=== PATIENT | female | born 2000 | race American Indian/Alaskan Native ===

== ENCOUNTER 2018-10-29 16:22 | Inpatient (IN) | payer MEDICAID ==
[2018-10-29] MEDS ORDERED: LACTATED RINGERS 1,000 ML IV ONE (17:38)
--- NOTE | 2018-10-29 19:57 | Ultrasound Report ---
FINAL REPORT PROCEDURE: US OB LIMITED TECHNIQUE: Real-time limited sonographic examination was performed for evaluation of fluid volume f or each fetus with image documentation (1 or more fetuses). CPT 74301 HISTORY: well being COMPARISON: No prior studies are available for comparison. FINDINGS: FETUS IUP: Single living intrauterine . Position: Cephalic. Amniotic fluid volume: Amniotic fluid index measures 9.6 centimeters Heart rate and rhythm: 152 BPM, Regular . IMPRESSION: Amniotic fluid index measures 9.6 centimeters
--- NOTE | 2018-10-29 19:58 | Ultrasound Report ---
FINAL REPORT PROCEDURE: US OB BPP WO NON-STRESS TECHNIQUE: Sonographic evaluation for breathing, movement, tone, and amniotic flui d volume was performed. CPT 78344 HISTORY: well being COMPARISON: No prior studies are available for comparison. FINDINGS: Amniotic fluid volume: Normal-score 2. At least one vertical pocket > 2 cm or more in vertical axi s. breathing: Normal-score 2. movement: Normal-score 2. tone: Normal-score 2. Score: 8 of 8. IMPRESSION: Normal biophysical profile score.
[2018-10-29] MEDS ORDERED: MINERAL OIL PO PRN (20:15)
[2018-10-29] MEDS ORDERED: CERVIDIL VG ONE (20:15)
[2018-10-29] MEDS ORDERED: BRETHINE SUB-Q PRN (20:15)
[2018-10-29] MEDS ORDERED: XYLOCAINE 2% INFILTRATI ONE (20:15)
[2018-10-29] MEDS ORDERED: ZOFRAN IV PRN (20:15)
--- NOTE | 2018-10-29 20:26 | History and Physical Report ---
History of Present Illness Date of examination: 10/29/18 Chief complaint: contractions, monitoring non-reassuring despite BPP 8/8 and normal OMERO. History of present illness: EDC Calculations LMP: 10/23/2018 Past History : 1 Term Births: 0 Premature Births: 0 Living Children: 0 Para: 0 Mult. Births: 0 Prev : 0 Prev. attempt? 0 Aborta: 0 Elect. Ab: 0 Spont. Ab: 0 Ectopics: 0 Past Medical History: Negative Past Medical History Past Surgical History: Negative Past Surgical History Risk Factors: Smoked Tobacco Use: Never smoker Drug use: no HIV high-risk behavior: low risk Caffeine use: 1 drinks per day Alcohol use: no Seatbelt use: preg-guidance counselor % Dietary Counseling: pn yes Past Medical History Surgery (Non-medical research tech): Negative Past Surgical History Abnormal PAP: negative DANIELLE Exposure: negative Infertility: negative Uterine Anomaly: negative Uterine Surgery (not C/S): negative Other Gynecologic Problems: negative Infection History Hx of STD: none HIV Risk Eval: low risk Hepatitis B Risk Eval: low risk Personal hx. of genital herpes: no Partner hx. of genital herpes: no Rash, Viral, or Febrile illness since last LMP? no Varicella/Chicken Pox Status: Unknown TB Risk: no Genetic History Congenital Heart Defect: Mom: no Dad: unknown Gaudencio Disease: Mom: no Dad: unknown Thalassemia Mom: no Dad: unknown Neural Tube Defect Mom: no Dad: unknown Down's Syndrome Mom: no Dad: unknown Marquis-Sachs Mom: no Dad: unknown Sickle Cell Disease/Trait Mom: no Dad: unknown Hemophilia Mom: no Dad: unknown Muscular Dystrophy Mom: no Dad: unknown Cystic Fibrosis Mom: no Dad: unknown [place] Chorea Mom: no Dad: unknown Mental Retardation Mom: no Dad: unknown Fragile X Mom: no Dad: unknown Other Genetic/Chromosomal Disorder Mom: no Dad: unknown Child w/other defect Mom: no Dad: unknown Enviromental Exposures Xray Exposure: no Medication, drug, or alcohol use since LMP: no Chemical/Other Exposure: no Exposure to Cat Liter: no Hx of Parvovirus (Fifth Disease): no Occupational Exposure to Children: none Active Medications (reviewed today): VITAMIN 27-0.8 MG ORAL TABLET ( VIT-FE FUMARATE-FA) Current Allergies (reviewed today): No known allergies Past History Past Medical History: other (see HPI) Past Surgical History: other (see HPI) BUDGET CONTROLLER History: other (see HPI) Family/Genetic History: other (see HPI) - Obstetrical History Expected Date of Delivery: 10/23/18 Actual Gestation: 40 Week(s) 6 Day(s) : 1 Para: 0 Hx # Term Pregnancies: 0 Number of Pregnancies: 0 Spontaneous Abortions: 0 Induced : 0 Number of Living Children: 0 Medications and Allergies Allergies Allergy/AdvReac Type Severity Reaction Status Date / Time No Known Allergies Allergy Unverified 02/06/16 21:32 Home Medications Medication Instructions Recorded Confirmed Last Taken Type Ciprofloxacin HCl [Ciprofloxacin 500 mg PO BID #14 tablet 02/07/16 Unknown Rx TAB] Active Meds: Active Medications Dinoprostone (Cervidil) 10 mg VG ONCE ONE Stop: 10/29/18 20:16 Ephedrine Sulfate (Ephedrine Sulfate) 10 mg IV Q2M PRN PRN Reason: Hypotension Lactated Ringer's (Lactated Ringers) 1,000 mls @ 125 mls/hr IV DIRECT JEREMY Oxytocin/Sodium Chloride (Pitocin/Ns 20 Unit/1000ml Drip) 20 units in 1,000 mls @ 125 mls/hr IV DIRECT JEREMY Lidocaine (Xylocaine 2%) 20 ml INFILTRATI ONCE ONE Stop: 10/29/18 20:16 Mineral Oil (Mineral Oil) 30 ml PO QHS PRN PRN Reason: Constipation Ondansetron HCl (Zofran) 4 mg IV Q8H PRN PRN Reason: Nausea And Vomiting Terbutaline Sulfate (Brethine) 0.25 mg SUB-Q ONCE PRN PRN Reason: Hyperstimulation/Hypertonicity Review of Systems All systems: negative - Vital Signs Vital signs: Vital Signs Pulse BP 120 H 141/81 10/29/18 16:41 10/29/18 16:41 Temp Pulse Resp BP Pulse Ox 120 H 141/81 10/29/18 16:41 10/29/18 16:41 - Physical Exam Breasts: Positive: normal Cardiovascular: Regular rate Lungs: Positive: Clear to auscultation Abdomen: Positive: normal appearance, soft Genitourinary (Female): Positive: normal external genitalia (no sign of HSV lesion), normal perenium. Negative: perineal/vulvar lesions Vulva: both: normal Vagina: Positive: normal moisture Uterus: Positive: normal size, normal contour Anus/Rectum: Positive: normal perianal skin Extremities: Positive: normal Deep Tendon Reflex Grade: Normal +2 Results Result Diagrams: 10/29/18 21:48 All other labs normal. Assessment and Plan 18y/o @ 40+5 weeks came to triage for a labor check. Pt found to not be in labor. FHT noted by triage nurse to be without accels. BPP 8/8, OMERO NL. after 1 liter of IVF and juice, FHT remain without accels and min-ave LTV. Plan made to admit for IOL. GBS NEG. Will place cervidil tonight and monitor closely. - Patient Problems (1) HSV-2 (herpes simplex virus 2) infection Current Visit: Yes Status: Acute (2) BMI 40.0-44.9, adult Current Visit: Yes Status: Acute (3) Non-reassuring electronic monitoring tracing Current Visit: Yes Status: Acute (4) 40 weeks gestation of Current Visit: Yes Status: Acute
[2018-10-29] MEDS ORDERED: PITOCin/NS 20 UNIT/1000ML DRIP 20 UNITS/1,000 ML BAG IV SCH (21:00)
[2018-10-29 22:06] LABS: Hematocrit 34.1 % (30.3-42.9); Hemoglobin 11.2 gm/dl (10.1-14.3); Mean Corpuscular HGB Conc 33 % (30-34); Mean Corpuscular Volume 85 fl (79-97); Platelet Count 180 K/mm3 (140-440); Red Blood Count 4.02 M/mm3 (3.65-5.03); Red Cell Distribution Width 17.4 % (13.2-15.2)
--- NOTE | 2018-10-29 23:20 | Event Note ---
Date: 10/29/18 Patient did not tolerate cervidil placement therefore it was not placed properly. Dr. Liz attempted to remove and replace by patient refused. Patient's family went home, left patient alone. She denies hx of sexual abuse or rape. discussed expectations of pain while in labor. patient states she does not want a c/s but she doesn't want to feel anything. again, reviewed it is not feasible to expect no pain while being induced. Pt eventually calmed down and verbalized understanding. Pt removed own cervidil. Will start low dose pit. Advised she will be reexamined in the morning. pt verbalizes understanding.
[2018-10-29] MEDS ORDERED: PITOCin/NS 30 UNIT/500ML 30 UNITS/500 ML BAG IV SCH (23:45)
[2018-10-30] MEDS ORDERED: STADOL IV PRN (03:38)
--- NOTE | 2018-10-30 05:51 | Progress Note ---
Assessment and Plan Will bolus for epidural Pitocin per protocol Re-eval after epidural Subjective - Subjective Date of service: 10/30/18 (pt c/o worsening pain with ctx) Patient reports: movement normal Objective - Vital Signs Vital Signs: Vital Signs - 12hr 10/29/18 10/29/18 10/29/18 21:22 21:27 21:30 Temperature 97.8 F Pulse Rate 110 H 104 H Respiratory Rate Blood Pressure 128/83 O2 Sat by Pulse 97 98 Oximetry 10/29/18 10/29/18 10/29/18 21:32 21:37 21:42 Temperature Pulse Rate 104 H 105 H 104 H Respiratory Rate Blood Pressure O2 Sat by Pulse 98 97 96 Oximetry 10/29/18 10/29/18 10/29/18 21:52 21:57 22:02 Temperature Pulse Rate 110 H 108 H 115 H Respiratory Rate Blood Pressure O2 Sat by Pulse 97 95 98 Oximetry 10/29/18 10/29/18 10/29/18 22:07 22:12 22:17 Temperature Pulse Rate 107 H 111 H 103 H Respiratory Rate Blood Pressure O2 Sat by Pulse 98 98 97 Oximetry 10/29/18 10/29/18 10/29/18 22:22 22:27 22:32 Temperature Pulse Rate 94 H 116 H 101 H Respiratory Rate Blood Pressure O2 Sat by Pulse 98 100 98 Oximetry 10/29/18 10/29/18 10/29/18 22:37 22:42 22:47 Temperature Pulse Rate 111 H 105 H 107 H Respiratory Rate Blood Pressure O2 Sat by Pulse 98 98 98 Oximetry 10/29/18 10/29/18 10/29/18 22:52 22:57 23:02 Temperature Pulse Rate 98 H 107 H 100 H Respiratory Rate Blood Pressure O2 Sat by Pulse 98 98 97 Oximetry 10/29/18 10/29/18 10/29/18 23:27 23:32 23:37 Temperature Pulse Rate 102 H 103 H 90 Respiratory Rate Blood Pressure O2 Sat by Pulse 98 99 98 Oximetry 10/29/18 10/29/18 10/29/18 23:42 23:47 23:52 Temperature Pulse Rate 98 H 103 H 94 H Respiratory Rate Blood Pressure O2 Sat by Pulse 97 96 98 Oximetry 10/29/18 10/30/18 10/30/18 23:57 00:02 00:07 Temperature Pulse Rate 98 H 106 H 98 H Respiratory Rate Blood Pressure 126/68 O2 Sat by Pulse 98 97 94 Oximetry 10/30/18 10/30/18 10/30/18 00:11 00:12 00:17 Temperature 100.5 F H Pulse Rate 93 H 98 H Respiratory Rate Blood Pressure O2 Sat by Pulse 96 97 Oximetry 10/30/18 10/30/18 10/30/18 00:22 00:27 00:32 Temperature Pulse Rate 96 H 98 H 99 H Respiratory Rate Blood Pressure O2 Sat by Pulse 98 98 99 Oximetry 10/30/18 10/30/18 10/30/18 00:37 00:42 00:47 Temperature Pulse Rate 97 H 100 H 97 H Respiratory Rate Blood Pressure O2 Sat by Pulse 97 98 98 Oximetry 10/30/18 10/30/18 10/30/18 00:52 00:57 01:02 Temperature Pulse Rate 98 H 99 H 116 H Respiratory Rate Blood Pressure O2 Sat by Pulse 97 98 95 Oximetry 10/30/18 10/30/18 10/30/18 01:07 01:22 01:27 Temperature Pulse Rate 103 H 105 H 95 H Respiratory Rate Blood Pressure O2 Sat by Pulse 96 97 98 Oximetry 10/30/18 10/30/18 10/30/18 01:32 01:37 01:42 Temperature Pulse Rate 92 H 99 H 96 H Respiratory Rate Blood Pressure O2 Sat by Pulse 97 98 97 Oximetry 10/30/18 10/30/18 10/30/18 01:47 01:52 01:57 Temperature Pulse Rate 95 H 93 H 99 H Respiratory Rate Blood Pressure O2 Sat by Pulse 96 97 96 Oximetry 10/30/18 10/30/18 10/30/18 02:02 02:07 02:12 Temperature Pulse Rate 99 H 97 H 103 H Respiratory Rate Blood Pressure O2 Sat by Pulse 97 96 97 Oximetry 10/30/18 10/30/18 10/30/18 02:17 02:22 02:27 Temperature Pulse Rate 94 H 94 H 98 H Respiratory Rate Blood Pressure O2 Sat by Pulse 96 97 96 Oximetry 10/30/18 10/30/18 10/30/18 02:32 02:37 02:39 Temperature Pulse Rate 94 H 92 H 98 H Respiratory Rate Blood Pressure O2 Sat by Pulse 96 96 94 Oximetry 10/30/18 10/30/18 10/30/18 02:42 02:47 02:51 Temperature Pulse Rate 99 H 99 H 104 H Respiratory Rate Blood Pressure O2 Sat by Pulse 97 95 93 Oximetry 10/30/18 10/30/18 10/30/18 02:52 02:57 03:16 Temperature Pulse Rate 104 H 107 H 108 H Respiratory Rate Blood Pressure O2 Sat by Pulse 98 96 97 Oximetry 10/30/18 10/30/18 10/30/18 03:21 03:26 03:31 Temperature Pulse Rate 114 H 103 H 100 H Respiratory Rate Blood Pressure O2 Sat by Pulse 96 98 96 Oximetry 10/30/18 10/30/18 10/30/18 03:33 03:36 03:41 Temperature Pulse Rate 115 H 98 H 106 H Respiratory Rate Blood Pressure O2 Sat by Pulse 92 97 97 Oximetry 10/30/18 10/30/18 10/30/18 03:46 03:51 03:56 Temperature Pulse Rate 100 H 103 H 101 H Respiratory 20 Rate Blood Pressure O2 Sat by Pulse 95 95 94 Oximetry 10/30/18 10/30/18 10/30/18 03:57 04:01 04:03 Temperature 100.3 F H Pulse Rate 100 H 105 H 104 H Respiratory Rate Blood Pressure 126/72 O2 Sat by Pulse 93 94 Oximetry 10/30/18 10/30/18 10/30/18 04:06 04:08 04:11 Temperature Pulse Rate 111 H 103 H 106 H Respiratory Rate Blood Pressure O2 Sat by Pulse 95 93 93 Oximetry 10/30/18 10/30/18 10/30/18 04:16 04:21 04:26 Temperature Pulse Rate 108 H 102 H 104 H Respiratory Rate Blood Pressure O2 Sat by Pulse 92 94 94 Oximetry 10/30/18 10/30/18 10/30/18 04:28 04:31 04:35 Temperature Pulse Rate 103 H 102 H 95 H Respiratory Rate Blood Pressure O2 Sat by Pulse 93 94 94 Oximetry 10/30/18 10/30/18 10/30/18 04:36 04:41 04:43 Temperature Pulse Rate 100 H 97 H 96 H Respiratory Rate Blood Pressure O2 Sat by Pulse 93 94 94 Oximetry 10/30/18 10/30/18 10/30/18 04:46 04:49 04:51 Temperature Pulse Rate 96 H 97 H 96 H Respiratory Rate Blood Pressure O2 Sat by Pulse 93 94 95 Oximetry 0210/30/18 10/30/18 04:56 04:59 05:01 Temperature Pulse Rate 96 H 96 H 97 H Respiratory Rate Blood Pressure O2 Sat by Pulse 94 94 95 Oximetry 10/30/18 10/30/18 10/30/18 05:06 05:11 05:15 Temperature Pulse Rate 96 H 96 H 102 H Respiratory Rate Blood Pressure O2 Sat by Pulse 96 95 94 Oximetry 10/30/18 10/30/18 10/30/18 05:16 05:21 05:22 Temperature Pulse Rate 98 H 101 H 99 H Respiratory Rate Blood Pressure O2 Sat by Pulse 95 95 94 Oximetry 10/30/18 10/30/18 10/30/18 05:26 05:28 05:31 Temperature Pulse Rate 94 H 99 H 91 H Respiratory Rate Blood Pressure O2 Sat by Pulse 95 94 96 Oximetry - Exam Breasts: deferred Cardiovascular: Regular rate Lungs: Normal air movement Abdomen: Present: normal appearance, soft. Absent: distention, tenderness Uterus: Present: normal FHR: auscultation normal, category 2 (variables) Uterine Contraction Monitor Mode: External Cervical Dilatation: 5 (pt is very difficult to examine) Cervical Effacement Percentage: 70 station: -1 Uterine Contraction Pattern: Regular Uterine Contraction Intensity: Moderate Extremities: edema Deep Tendon Reflex Grade: Normal +2 - Labs Labs: Abnormal Labs 10/29/18 21:48 WBC 12.4 H RDW 17.4 H Laboratory Results - last 24 hr 10/29/18 10/29/18 20:15 21:48 WBC 12.4 H RBC 4.02 Hgb 11.2 Hct 34.1 MCV 85 MCH 28 MCHC 33 RDW 17.4 H Plt Count 180 Blood Type O POSITIVE Antibody Screen Negative
[2018-10-30] MEDS ORDERED: LACTATED RINGERS 1,000 ML IV SCH ×2 (06:00→13:00)
[2018-10-30] MEDS: LACTATED RINGERS 1,000 ML IV SCH ×2 (06:04→10:08)
--- NOTE | 2018-10-30 07:16 | Anesthesia Day of Surgery ---
Anesthesia Day of Surgery - Day of Surgery Patient Examined: Yes Patient H&P Reviewed: Yes Patient is NPO: Yes Beta Blockers: No Cardiac Clearance: No Pulmonary Clearance: No Alfred's Test: N/A
--- NOTE | 2018-10-30 07:16 | Anesthesia Consultation ---
Anesthesia Consult and Med Hx - Airway Anesthetic Teeth Evaluation: Good ROM Head & Neck: Adequate Mental/Hyoid Distance: Adequate Mallampati Class: Class I Intubation Access Assessment: Good - Pulmonary Exam CTA: Yes - Cardiac Exam Cardiac Exam: RRR - Pre-Operative Health Status ASA Pre-Surgery Classification: ASA2 Proposed Anesthetic Plan: Epidural - Pulmonary Hx Smoking: No Hx Asthma: No COPD: No Hx Pneumonia: No - Cardiovascular System Hx Hypertension: No - Central Nervous System Hx Seizures: No Hx Psychiatric Problems: No - Endocrine Hx Renal Disease: No Hx End Stage Renal Disease: No Hx Hypothyroidism: No Hx Hyperthyroidism: No - Hematic Hx Anemia: No Hx Sickle Cell Disease: No - Other Systems Hx Alcohol Use: No
[2018-10-30] MEDS ORDERED: LIDOCAINE 1.5%/EPI 1:200,000 INFILTRATI ONE (07:20)
[2018-10-30] MEDS ORDERED: MARCAINE 0.25% INFILTRATI ONE (07:20)
[2018-10-30] MEDS ORDERED: fentaNYL-BUPIV 2 MCG/ML-0.125% 200 MCG/100 ML BAG EPIDURAL SCH (08:00)
[2018-10-30] MEDS ORDERED: PITOCin/NS 30 UNIT/500ML 30 UNITS/500 ML BAG IV SCH (08:00)
[2018-10-30] MEDS ORDERED: NARCAN 2 MG/2 ML IV PRN (08:00)
--- NOTE | 2018-10-30 08:38 | Progress Note ---
Assessment and Plan pt comfortable with epidural SVE 10,100,0 SROM thick meconium Continue pit Anticipate delivery Subjective - Subjective Date of service: 10/30/18 (comfortable with epidural) Patient reports: movement normal Objective - Vital Signs Vital Signs: Vital Signs - 12hr 10/29/18 10/29/18 10/29/18 21:22 21:27 21:30 Temperature 97.8 F Pulse Rate 110 H 104 H Respiratory Rate Blood Pressure 128/83 O2 Sat by Pulse 97 98 Oximetry 10/29/18 10/29/18 10/29/18 21:32 21:37 21:42 Temperature Pulse Rate 104 H 105 H 104 H Respiratory Rate Blood Pressure O2 Sat by Pulse 98 97 96 Oximetry 10/29/18 10/29/18 10/29/18 21:52 21:57 22:02 Temperature Pulse Rate 110 H 108 H 115 H Respiratory Rate Blood Pressure O2 Sat by Pulse 97 95 98 Oximetry 10/29/18 10/29/18 10/29/18 22:07 22:12 22:17 Temperature Pulse Rate 107 H 111 H 103 H Respiratory Rate Blood Pressure O2 Sat by Pulse 98 98 97 Oximetry 10/29/18 10/29/18 10/29/18 22:22 22:27 22:32 Temperature Pulse Rate 94 H 116 H 101 H Respiratory Rate Blood Pressure O2 Sat by Pulse 98 100 98 Oximetry 10/29/18 10/29/18 10/29/18 22:37 22:42 22:47 Temperature Pulse Rate 111 H 105 H 107 H Respiratory Rate Blood Pressure O2 Sat by Pulse 98 98 98 Oximetry 10/29/18 10/29/18 10/29/18 22:52 22:57 23:02 Temperature Pulse Rate 98 H 107 H 100 H Respiratory Rate Blood Pressure O2 Sat by Pulse 98 98 97 Oximetry 10/29/18 10/29/18 10/29/18 23:27 23:32 23:37 Temperature Pulse Rate 102 H 103 H 90 Respiratory Rate Blood Pressure O2 Sat by Pulse 98 99 98 Oximetry 10/29/18 10/29/18 10/29/18 23:42 23:47 23:52 Temperature Pulse Rate 98 H 103 H 94 H Respiratory Rate Blood Pressure O2 Sat by Pulse 97 96 98 Oximetry 10/29/18 10/30/18 10/30/18 23:57 00:02 00:07 Temperature Pulse Rate 98 H 106 H 98 H Respiratory Rate Blood Pressure 126/68 O2 Sat by Pulse 98 97 94 Oximetry 10/30/18 10/30/18 10/30/18 00:11 00:12 00:17 Temperature 100.5 F H Pulse Rate 93 H 98 H Respiratory Rate Blood Pressure O2 Sat by Pulse 96 97 Oximetry 10/30/18 10/30/18 10/30/18 00:22 00:27 00:32 Temperature Pulse Rate 96 H 98 H 99 H Respiratory Rate Blood Pressure O2 Sat by Pulse 98 98 99 Oximetry 10/30/18 10/30/18 10/30/18 00:37 00:42 00:47 Temperature Pulse Rate 97 H 100 H 97 H Respiratory Rate Blood Pressure O2 Sat by Pulse 97 98 98 Oximetry 10/30/18 10/30/18 10/30/18 00:52 00:57 01:02 Temperature Pulse Rate 98 H 99 H 116 H Respiratory Rate Blood Pressure O2 Sat by Pulse 97 98 95 Oximetry 10/30/18 10/30/18 10/30/18 01:07 01:22 01:27 Temperature Pulse Rate 103 H 105 H 95 H Respiratory Rate Blood Pressure O2 Sat by Pulse 96 97 98 Oximetry 10/30/18 10/30/18 10/30/18 01:32 01:37 01:42 Temperature Pulse Rate 92 H 99 H 96 H Respiratory Rate Blood Pressure O2 Sat by Pulse 97 98 97 Oximetry 10/30/18 10/30/18 10/30/18 01:47 01:52 01:57 Temperature Pulse Rate 95 H 93 H 99 H Respiratory Rate Blood Pressure O2 Sat by Pulse 96 97 96 Oximetry 10/30/18 10/30/18 10/30/18 02:02 02:07 02:12 Temperature Pulse Rate 99 H 97 H 103 H Respiratory Rate Blood Pressure O2 Sat by Pulse 97 96 97 Oximetry 10/30/18 10/30/18 10/30/18 02:17 02:22 02:27 Temperature Pulse Rate 94 H 94 H 98 H Respiratory Rate Blood Pressure O2 Sat by Pulse 96 97 96 Oximetry 10/30/18 10/30/18 10/30/18 02:32 02:37 02:39 Temperature Pulse Rate 94 H 92 H 98 H Respiratory Rate Blood Pressure O2 Sat by Pulse 96 96 94 Oximetry 10/30/18 10/30/18 10/30/18 02:42 02:47 02:51 Temperature Pulse Rate 99 H 99 H 104 H Respiratory Rate Blood Pressure O2 Sat by Pulse 97 95 93 Oximetry 10/30/18 10/30/18 10/30/18 02:52 02:57 03:16 Temperature Pulse Rate 104 H 107 H 108 H Respiratory Rate Blood Pressure O2 Sat by Pulse 98 96 97 Oximetry 10/30/18 10/30/18 10/30/18 03:21 03:26 03:31 Temperature Pulse Rate 114 H 103 H 100 H Respiratory Rate Blood Pressure O2 Sat by Pulse 96 98 96 Oximetry 10/30/18 10/30/18 10/30/18 03:33 03:36 03:41 Temperature Pulse Rate 115 H 98 H 106 H Respiratory Rate Blood Pressure O2 Sat by Pulse 92 97 97 Oximetry 10/30/18 10/30/18 10/30/18 03:46 03:51 03:56 Temperature Pulse Rate 100 H 103 H 101 H Respiratory 20 Rate Blood Pressure O2 Sat by Pulse 95 95 94 Oximetry 10/30/18 10/30/18 10/30/18 03:57 04:01 04:03 Temperature 100.3 F H Pulse Rate 100 H 105 H 104 H Respiratory Rate Blood Pressure 126/72 O2 Sat by Pulse 93 94 Oximetry 10/30/18 10/30/18 10/30/18 04:06 04:08 04:11 Temperature Pulse Rate 111 H 103 H 106 H Respiratory Rate Blood Pressure O2 Sat by Pulse 95 93 93 Oximetry 10/30/18 10/30/18 10/30/18 04:16 04:21 04:26 Temperature Pulse Rate 108 H 102 H 104 H Respiratory Rate Blood Pressure O2 Sat by Pulse 92 94 94 Oximetry 10/30/18 10/30/18 10/30/18 04:28 04:31 04:35 Temperature Pulse Rate 103 H 102 H 95 H Respiratory Rate Blood Pressure O2 Sat by Pulse 93 94 94 Oximetry 10/30/18 10/30/18 10/30/18 04:36 04:41 04:43 Temperature Pulse Rate 100 H 97 H 96 H Respiratory Rate Blood Pressure O2 Sat by Pulse 93 94 94 Oximetry 10/30/18 10/30/18 10/30/18 04:46 04:49 04:51 Temperature Pulse Rate 96 H 97 H 96 H Respiratory Rate Blood Pressure O2 Sat by Pulse 93 94 95 Oximetry 10/30/18 10/30/18 10/30/18 04:56 04:59 05:01 Temperature Pulse Rate 96 H 96 H 97 H Respiratory Rate Blood Pressure O2 Sat by Pulse 94 94 95 Oximetry 10/30/18 10/30/18 10/30/18 05:06 05:11 05:15 Temperature Pulse Rate 96 H 96 H 102 H Respiratory Rate Blood Pressure O2 Sat by Pulse 96 95 94 Oximetry 10/30/18 10/30/18 10/30/18 05:16 05:21 05:22 Temperature Pulse Rate 98 H 101 H 99 H Respiratory Rate Blood Pressure O2 Sat by Pulse 95 95 94 Oximetry 10/30/18 10/30/18 10/30/18 05:26 05:28 05:31 Temperature Pulse Rate 94 H 99 H 91 H Respiratory Rate Blood Pressure O2 Sat by Pulse 95 94 96 Oximetry 10/30/18 10/30/18 10/30/18 05:50 05:55 05:57 Temperature Pulse Rate 94 H 92 H 94 H Respiratory Rate Blood Pressure O2 Sat by Pulse 97 97 94 Oximetry 10/30/18 10/30/18 10/30/18 06:00 06:05 06:10 Temperature Pulse Rate 96 H 103 H 100 H Respiratory Rate Blood Pressure O2 Sat by Pulse 95 95 99 Oximetry 10/30/18 10/30/18 10/30/18 06:15 06:20 06:25 Temperature Pulse Rate 107 H 100 H 101 H Respiratory Rate Blood Pressure O2 Sat by Pulse 95 95 94 Oximetry 10/30/18 10/30/18 10/30/18 06:30 06:31 06:35 Temperature Pulse Rate 96 H 100 H 99 H Respiratory Rate Blood Pressure O2 Sat by Pulse 96 94 94 Oximetry 10/30/18 10/30/18 10/30/18 06:38 06:40 06:44 Temperature Pulse Rate 103 H 98 H 103 H Respiratory Rate Blood Pressure O2 Sat by Pulse 94 94 86 Oximetry 10/30/18 10/30/18 10/30/18 06:45 07:18 07:24 Temperature Pulse Rate 102 H 111 H 124 H Respiratory Rate Blood Pressure O2 Sat by Pulse 93 96 97 Oximetry 10/30/18 10/30/18 10/30/18 07:29 07:34 07:38 Temperature Pulse Rate 128 H 121 H 136 H Respiratory Rate Blood Pressure 150/87 146/85 O2 Sat by Pulse 97 96 94 Oximetry 10/30/18 10/30/18 10/30/18 07:39 07:40 07:42 Temperature Pulse Rate 132 H 126 H 134 H Respiratory Rate Blood Pressure 159/91 158/83 O2 Sat by Pulse 95 Oximetry 10/30/18 10/30/18 10/30/18 07:44 07:46 07:48 Temperature Pulse Rate 120 H 114 H 113 H Respiratory Rate Blood Pressure 141/63 124/61 118/56 O2 Sat by Pulse 97 Oximetry 10/30/18 10/30/18 10/30/18 07:49 07:50 07:52 Temperature Pulse Rate 122 H 144 H 134 H Respiratory Rate Blood Pressure 180/66 105/55 O2 Sat by Pulse 96 Oximetry 10/30/18 10/30/18 10/30/18 07:54 07:56 07:58 Temperature Pulse Rate 134 H 129 H 130 H Respiratory Rate Blood Pressure 109/55 105/54 89/51 O2 Sat by Pulse 96 Oximetry 10/30/18 10/30/18 10/30/18 07:59 08:00 08:01 Temperature Pulse Rate 123 H 126 H 129 H Respiratory Rate Blood Pressure 99/52 112/58 O2 Sat by Pulse 98 Oximetry 10/30/18 10/30/18 10/30/18 08:04 08:06 08:08 Temperature Pulse Rate 130 H 127 H 126 H Respiratory Rate Blood Pressure 119/66 118/63 109/63 O2 Sat by Pulse 97 Oximetry 10/30/18 10/30/18 10/30/18 08:09 08:10 08:12 Temperature Pulse Rate 125 H 134 H Respiratory Rate Blood Pressure 110/58 114/59 O2 Sat by Pulse 99 Oximetry 10/30/18 10/30/18 10/30/18 08:14 08:16 08:18 Temperature Pulse Rate 126 H 125 H 125 H Respiratory Rate Blood Pressure 127/61 105/56 95/62 O2 Sat by Pulse 98 Oximetry 10/30/18 10/30/18 10/30/18 08:19 08:24 08:29 Temperature Pulse Rate 128 H 126 H 141 H Respiratory Rate Blood Pressure O2 Sat by Pulse 97 99 97 Oximetry 10/30/18 08:34 Temperature Pulse Rate 127 H Respiratory Rate Blood Pressure O2 Sat by Pulse 96 Oximetry - Exam Breasts: deferred Cardiovascular: Regular rate Lungs: Clear to auscultation, Normal air movement Abdomen: Present: normal appearance, soft. Absent: distention, tenderness Uterus: Present: normal FHR: auscultation normal, category 1 Uterine Contraction Monitor Mode: External Cervical Dilatation: 9 (SROM thick meconium) Cervical Effacement Percentage: 100 station: 0 Uterine Contraction Pattern: Regular Uterine Tone Measurement Phase: Resting Uterine Contraction Intensity: Moderate Extremities: normal Deep Tendon Reflex Grade: Normal +2 - Labs Labs: Abnormal Labs 10/29/18 21:48 WBC 12.4 H RDW 17.4 H Laboratory Results - last 24 hr 10/29/18 10/29/18 20:15 21:48 WBC 12.4 H RBC 4.02 Hgb 11.2 Hct 34.1 MCV 85 MCH 28 MCHC 33 RDW 17.4 H Plt Count 180 Blood Type O POSITIVE Antibody Screen Negative
--- NOTE | 2018-10-30 12:42 | Progress Note ---
Assessment and Plan Pt C,C,-1 Pushed X 1 hour Noted OP and caput Pt rerpositioned to leg up in stirup After 30min Reevaluated Baby remains OP with deep variables Pt aware of need for delivery Risks discussed, damage to surrounding organs, need for blood transfusion, need for c/s with all future deliveries. All questions addressed. Consents signed. Orders in EMR. aware approx start time 1315 - Patient Problems (1) Arrest of descent, delivered, current hospitalization Current Visit: Yes Status: Acute (2) delivery delivered Current Visit: Yes Status: Acute Subjective - Subjective Date of service: 10/30/18 (Pushed X 1 hour; OP; rested X 30min) Patient reports: movement normal Objective - Vital Signs Vital Signs: Vital Signs - 12hr 10/30/18 10/30/18 10/30/18 00:42 00:47 00:52 Temperature Pulse Rate 100 H 97 H 98 H Respiratory Rate Blood Pressure O2 Sat by Pulse 98 98 97 Oximetry 10/30/18 10/30/18 10/30/18 00:57 01:02 01:07 Temperature Pulse Rate 99 H 116 H 103 H Respiratory Rate Blood Pressure O2 Sat by Pulse 98 95 96 Oximetry 10/30/18 10/30/18 10/30/18 01:22 01:27 01:32 Temperature Pulse Rate 105 H 95 H 92 H Respiratory Rate Blood Pressure O2 Sat by Pulse 97 98 97 Oximetry 10/30/18 10/30/18 10/30/18 01:37 01:42 01:47 Temperature Pulse Rate 99 H 96 H 95 H Respiratory Rate Blood Pressure O2 Sat by Pulse 98 97 96 Oximetry 10/30/18 10/30/18 10/30/18 01:52 01:57 02:02 Temperature Pulse Rate 93 H 99 H 99 H Respiratory Rate Blood Pressure O2 Sat by Pulse 97 96 97 Oximetry 10/30/18 10/30/18 10/30/18 02:07 02:12 02:17 Temperature Pulse Rate 97 H 103 H 94 H Respiratory Rate Blood Pressure O2 Sat by Pulse 96 97 96 Oximetry 10/30/18 10/30/18 10/30/18 02:22 02:27 02:32 Temperature Pulse Rate 94 H 98 H 94 H Respiratory Rate Blood Pressure O2 Sat by Pulse 97 96 96 Oximetry 10/30/18 10/30/1819 02:37 02:39 02:42 Temperature Pulse Rate 92 H 98 H 99 H Respiratory Rate Blood Pressure O2 Sat by Pulse 96 94 97 Oximetry 10/30/18 10/30/18 10/30/18 02:47 02:51 02:52 Temperature Pulse Rate 99 H 104 H 104 H Respiratory Rate Blood Pressure O2 Sat by Pulse 95 93 98 Oximetry 10/30/18 10/30/18 10/30/18 02:57 03:16 03:21 Temperature Pulse Rate 107 H 108 H 114 H Respiratory Rate Blood Pressure O2 Sat by Pulse 96 97 96 Oximetry 10/30/18 10/30/18 10/30/18 03:26 03:31 03:33 Temperature Pulse Rate 103 H 100 H 115 H Respiratory Rate Blood Pressure O2 Sat by Pulse 98 96 92 Oximetry 10/30/18 10/30/18 10/30/18 03:36 03:41 03:46 Temperature Pulse Rate 98 H 106 H 100 H Respiratory Rate Blood Pressure O2 Sat by Pulse 97 97 95 Oximetry 10/30/18 10/30/18 10/30/18 03:51 03:56 03:57 Temperature 100.3 F H Pulse Rate 103 H 101 H 100 H Respiratory 20 Rate Blood Pressure 126/72 O2 Sat by Pulse 95 94 Oximetry 10/30/18 10/30/18 10/30/18 04:01 04:03 04:06 Temperature Pulse Rate 105 H 104 H 111 H Respiratory Rate Blood Pressure O2 Sat by Pulse 93 94 95 Oximetry 10/30/18 10/30/18 10/30/18 04:08 04:11 04:16 Temperature Pulse Rate 103 H 106 H 108 H Respiratory Rate Blood Pressure O2 Sat by Pulse 93 93 92 Oximetry 10/30/18 10/30/18 10/30/18 04:21 04:26 04:28 Temperature Pulse Rate 102 H 104 H 103 H Respiratory Rate Blood Pressure O2 Sat by Pulse 94 94 93 Oximetry 10/30/18 10/30/18 10/30/18 04:31 04:35 04:36 Temperature Pulse Rate 102 H 95 H 100 H Respiratory Rate Blood Pressure O2 Sat by Pulse 94 94 93 Oximetry 10/30/18 10/30/18 10/30/18 04:41 04:43 04:46 Temperature Pulse Rate 97 H 96 H 96 H Respiratory Rate Blood Pressure O2 Sat by Pulse 94 94 93 Oximetry 10/30/18 10/30/18 10/30/18 04:49 04:51 04:56 Temperature Pulse Rate 97 H 96 H 96 H Respiratory Rate Blood Pressure O2 Sat by Pulse 94 95 94 Oximetry 10/30/18 10/30/18 10/30/18 04:59 05:01 05:06 Temperature Pulse Rate 96 H 97 H 96 H Respiratory Rate Blood Pressure O2 Sat by Pulse 94 95 96 Oximetry 10/30/18 10/30/18 10/30/18 05:11 05:15 05:16 Temperature Pulse Rate 96 H 102 H 98 H Respiratory Rate Blood Pressure O2 Sat by Pulse 95 94 95 Oximetry 10/30/18 10/30/18 10/30/18 05:21 05:22 05:26 Temperature Pulse Rate 101 H 99 H 94 H Respiratory Rate Blood Pressure O2 Sat by Pulse 95 94 95 Oximetry 10/30/18 10/30/18 10/30/18 05:28 05:31 05:50 Temperature Pulse Rate 99 H 91 H 94 H Respiratory Rate Blood Pressure O2 Sat by Pulse 94 96 97 Oximetry 10/30/18 10/30/18 10/30/18 05:55 05:57 06:00 Temperature Pulse Rate 92 H 94 H 96 H Respiratory Rate Blood Pressure O2 Sat by Pulse 97 94 95 Oximetry 10/30/18 10/30/18 10/30/18 06:05 06:10 06:15 Temperature Pulse Rate 103 H 100 H 107 H Respiratory Rate Blood Pressure O2 Sat by Pulse 95 99 95 Oximetry 10/30/18 10/30/18 10/30/18 06:20 06:25 06:30 Temperature Pulse Rate 100 H 101 H 96 H Respiratory Rate Blood Pressure O2 Sat by Pulse 95 94 96 Oximetry 10/30/18 10/30/18 10/30/18 06:31 06:35 06:38 Temperature Pulse Rate 100 H 99 H 103 H Respiratory Rate Blood Pressure O2 Sat by Pulse 94 94 94 Oximetry 10/30/18 10/30/18 10/30/18 06:40 06:44 06:45 Temperature Pulse Rate 98 H 103 H 102 H Respiratory Rate Blood Pressure O2 Sat by Pulse 94 86 93 Oximetry 10/30/18 10/30/18 10/30/18 07:18 07:24 07:29 Temperature Pulse Rate 111 H 124 H 128 H Respiratory Rate Blood Pressure O2 Sat by Pulse 96 97 97 Oximetry 10/30/18 10/30/18 10/30/18 07:34 07:38 07:39 Temperature Pulse Rate 121 H 136 H 132 H Respiratory Rate Blood Pressure 150/87 146/85 O2 Sat by Pulse 96 94 95 Oximetry 10/30/18 10/30/18 10/30/18 07:40 07:42 07:44 Temperature Pulse Rate 126 H 134 H 120 H Respiratory Rate Blood Pressure 159/91 158/83 141/63 O2 Sat by Pulse 97 Oximetry 10/30/18 10/30/18 10/30/18 07:46 07:48 07:49 Temperature Pulse Rate 114 H 113 H 122 H Respiratory Rate Blood Pressure 124/61 118/56 O2 Sat by Pulse 96 Oximetry 10/30/18 10/30/18 10/30/18 07:50 07:52 07:54 Temperature Pulse Rate 144 H 134 H 134 H Respiratory Rate Blood Pressure 180/66 105/55 109/55 O2 Sat by Pulse 96 Oximetry 10/30/18 10/30/18 10/30/18 07:56 07:58 07:59 Temperature Pulse Rate 129 H 130 H 123 H Respiratory Rate Blood Pressure 105/54 89/51 O2 Sat by Pulse 98 Oximetry 10/30/18 10/30/18 10/30/18 08:00 08:01 08:04 Temperature Pulse Rate 126 H 129 H 130 H Respiratory Rate Blood Pressure 99/52 112/58 119/66 O2 Sat by Pulse 97 Oximetry 10/30/18 10/30/18 10/30/18 08:06 08:08 08:09 Temperature Pulse Rate 127 H 126 H Respiratory Rate Blood Pressure 118/63 109/63 O2 Sat by Pulse 99 Oximetry 10/30/18 10/30/18 10/30/18 08:10 08:12 08:14 Temperature Pulse Rate 125 H 134 H 126 H Respiratory Rate Blood Pressure 110/58 114/59 127/61 O2 Sat by Pulse 98 Oximetry 10/30/18 10/30/18 10/30/18 08:16 08:18 08:19 Temperature Pulse Rate 125 H 125 H 128 H Respiratory Rate Blood Pressure 105/56 95/62 O2 Sat by Pulse 97 Oximetry 10/30/18 10/30/18 10/30/18 08:24 08:29 08:34 Temperature Pulse Rate 126 H 141 H 127 H Respiratory Rate Blood Pressure O2 Sat by Pulse 99 97 96 Oximetry 10/30/18 10/30/18 10/30/18 08:35 08:39 08:44 Temperature Pulse Rate 125 H 118 H 118 H Respiratory Rate Blood Pressure 108/59 O2 Sat by Pulse 96 97 Oximetry 10/30/18 10/30/18 10/30/18 08:49 08:54 08:59 Temperature Pulse Rate 119 H 120 H 114 H Respiratory Rate Blood Pressure 121/62 O2 Sat by Pulse 97 97 97 Oximetry 10/30/18 10/30/18 10/30/18 09:04 09:09 09:14 Temperature Pulse Rate 119 H 117 H 111 H Respiratory Rate Blood Pressure 120/59 O2 Sat by Pulse 96 97 95 Oximetry 10/30/18 10/30/18 10/30/18 09:19 09:24 09:29 Temperature Pulse Rate 113 H 110 H 114 H Respiratory Rate Blood Pressure 140/85 O2 Sat by Pulse 97 99 97 Oximetry 10/30/18 10/30/18 10/30/18 09:34 09:36 09:39 Temperature Pulse Rate 108 H 111 H 117 H Respiratory Rate Blood Pressure 140/87 O2 Sat by Pulse 98 97 Oximetry 10/30/18 10/30/18 10/30/18 09:44 09:49 09:50 Temperature Pulse Rate 113 H 99 H 100 H Respiratory Rate Blood Pressure 141/83 O2 Sat by Pulse 100 100 Oximetry 10/30/18 10/30/18 10/30/18 09:54 09:59 10:04 Temperature Pulse Rate 98 H 101 H 93 H Respiratory Rate Blood Pressure 141/80 O2 Sat by Pulse 98 98 98 Oximetry 10/30/18 10/30/18 10/30/18 10:09 10:14 10:19 Temperature Pulse Rate 95 H 90 99 H Respiratory Rate Blood Pressure O2 Sat by Pulse 99 99 97 Oximetry 10/30/18 10/30/18 10/30/18 10:20 10:24 10:29 Temperature Pulse Rate 95 H 90 100 H Respiratory Rate Blood Pressure 145/78 O2 Sat by Pulse 99 100 Oximetry 10/30/18 10/30/18 10/30/18 10:34 10:36 10:39 Temperature Pulse Rate 96 H 93 H 98 H Respiratory Rate Blood Pressure 127/78 O2 Sat by Pulse 98 99 Oximetry 10/30/18 10/30/18 10/30/18 10:44 10:50 11:00 Temperature 98.3 F Pulse Rate 105 H 104 H Respiratory 16 Rate Blood Pressure 119/77 O2 Sat by Pulse 98 Oximetry 10/30/18 10/30/18 10/30/18 11:04 11:05 11:19 Temperature Pulse Rate 109 H 103 H 110 H Respiratory Rate Blood Pressure 120/70 123/69 O2 Sat by Pulse 100 100 Oximetry 10/30/18 10/30/18 10/30/18 11:35 11:52 12:04 Temperature Pulse Rate 110 H 101 H 93 H Respiratory Rate Blood Pressure 133/73 139/60 135/69 O2 Sat by Pulse Oximetry 10/30/18 10/30/18 12:19 12:35 Temperature Pulse Rate 99 H 91 H Respiratory Rate Blood Pressure 140/63 121/84 O2 Sat by Pulse Oximetry - Exam Breasts: deferred Cardiovascular: Regular rate Lungs: Normal air movement Abdomen: Present: normal appearance, soft. Absent: distention, tenderness Uterus: Present: normal FHR: auscultation normal Uterine Contraction Monitor Mode: External Cervical Dilatation: 10 (caput; OP) Cervical Effacement Percentage: 100 station: -1 Uterine Contraction Pattern: Regular Uterine Tone Measurement Phase: Resting Uterine Contraction Intensity: Moderate Extremities: edema Deep Tendon Reflex Grade: Normal +2 - Labs Labs: Abnormal Labs 10/29/18 21:48 WBC 12.4 H RDW 17.4 H Laboratory Results - last 24 hr 10/29/18 10/29/18 10/29/18 20:15 21:48 21:48 WBC 12.4 H RBC 4.02 Hgb 11.2 Hct 34.1 MCV 85 MCH 28 MCHC 33 RDW 17.4 H Plt Count 180 RPR Nonreactive Blood Type O POSITIVE Antibody Screen Negative
[2018-10-30] MEDS ORDERED: ANCEF/STERILE WATER 2 GM/20 ML 2 GM/20 ML SYRINGE IV NR (13:00)
[2018-10-30] MEDS ORDERED: PITOCin/NS 20 UNIT/1000ML DRIP 20 UNITS/1,000 ML BAG IV SCH ×2 (13:00→16:00)
[2018-10-30] MEDS ORDERED: BICITRA PO NR (13:00)
[2018-10-30] MEDS ORDERED: REGLAN IV NR (13:00)
[2018-10-30] MEDS ORDERED: PEPCID IV NR (13:00)
[2018-10-30] MEDS ORDERED: ASTRAMORPH PF 10MG/10ML ONE (14:00)
[2018-10-30] MEDS ORDERED: ZOFRAN ONE (14:00)
[2018-10-30] MEDS ORDERED: TORADOL ONE (14:15)
[2018-10-30] MEDS ORDERED: LACTATED RINGERS 1,000 ML ONE (14:28)
--- NOTE | 2018-10-30 14:59 | Post Anesthesia Evaluation ---
- Post Anesthesia Evaluation Patient Participated: Yes Airway Patent: Yes Stable Respiratory Function: Yes Nausea/Vomiting: No Temp > 96.8F: Yes Pain Manageable: Yes Adequeate Hydration: Yes Anesthesia Complications: No Block Receding Appropriately: Yes Patient on Ventilator: No
--- NOTE | 2018-10-30 15:18 | Operative Report ---
Operative Report Operative Report: Date of procedure: 10/30/2018 Pre-operative diagnosis: Intrauterine at 41 weeks, with failure of de scent and nonreassuring heart tracing. Meconium-stained fluid Post-operative diagnosis: Same plus macrosomia Procedure name(s): Primary low transverse section Surgeon: Rambo Fletcher MD Business Control Manager: Arpita Vásquez, certified nurse maintenance mechanic engine Anesthesia: Epidural EBL: 500 mL Complications: None Findings: Patient had uterus is normal with normal tubes and ovaries bilaterally. A male weight 9 lbs. 2 oz. Apgars 7 at 1 minute and 9 at 5 minute Specimen(s): None Procedure: The patient was brought to the operating room. Her epidural was dose without any complications. She was then placed in left lateral tilt. Prepped and draped in the usual sterile manner. After testing for adequate anesthesia level, a Pfannenstiel incision was made. This incision was taken down to the fascia. The fascia was then nicked in the midline. This incision was extended out laterally with Lyons scissors. The fascia was then sharply and bluntly from the underlying rectus muscles. The rectus muscles were bluntly and sharply . The peritoneum was then entered with the portable router operator's fingers. This incision was spread vertically with care not to damage the bladder below. Bladder blade was placed. The bladder flap was then formed sharply and bluntly with Metzenbaum scissors. A transverse incision was made in lower uterine segment. This incision was extended laterally with the operators fingers. The amniotic sac was then entered bluntly with the portable router operator's fingers. The infant was delivered from the vertex position occipitoposterior position. The infant was Bulb suction on the mother's abdomen. Cord was double clamped and cut. The was then passed to the nursery personnel who were in attendance. The above scores were given by the nursery personnel. The placenta was then bluntly removed. The uterus was then externalized and wiped clean the remaining products. The uterine incision was closed in layers. The first incision was closed in a locking manner using 0 Vicryl. This was followed by imbricating stitch also with 0 Vicryl. This closure was hemostatic. The bladder flap was copiously irrigated and found to be hemostatic. The pelvis was copiously irrigated and found to be hemostatic. The uterus was then placed back to the patient's abdomen. The retractors were removed. The rectus muscles were inspe cted and found to be hemostatic. The fascia was then closed in a running manner using 0 Vicryl. This incision was hemostatic irrigation Bovie. The skin was reapproximated with 4-0 Vicryl subcuticularly. The patient tolerated procedure well. Her urine was clear. The infant was admitted to the [facility] baby nursery. The patient was accompanied to recovery room in good condition. Instrument count correct times 3.
[2018-10-30] MEDS ORDERED: MYLICON PO PRN (15:46)
[2018-10-30] MEDS ORDERED: MILK OF MAGNESIA PO PRN (15:46)
[2018-10-30] MEDS ORDERED: TUCKS PAD TP PRN (15:46)
[2018-10-30] MEDS ORDERED: NARCAN 0.4 MG/1 ML IV PRN (15:46)
[2018-10-30] MEDS ORDERED: LANSINOH TP PRN (15:46)
[2018-10-30] MEDS ORDERED: SODIUM CHLORIDE FLUSH SYRINGE 10 ML IV NR (16:00)
[2018-10-30] MEDS ORDERED: D5LR 1,000 ML IV SCH (16:00)
[2018-10-30] MEDS: TORADOL IV PRN (20:18)
[2018-10-30] MEDS ORDERED: ANCEF/NS 1 GM/50 ML 1 GM/50 ML BAG IV SCH (21:00)
[2018-10-31] MEDS: NORCO 5/325 PO PRN ×3 (03:36→22:15)
[2018-10-31] MEDS: TORADOL IV PRN (03:37)
[2018-10-31 05:59] LABS: Hematocrit 28.5 % (30.3-42.9); Hemoglobin 9.3 gm/dl (10.1-14.3)
--- NOTE | 2018-10-31 10:14 | Progress Note ---
Assessment and Plan POD 1 s/p primary c/s. Fundus firm, ML, bleeding small. Incision well approximated, healing well, no bleeding or drainage, no signs of infection. Pain well controlled with medications. No complaints. Will continue post op pathway. Subjective - Subjective Date of service: 10/31/18 Principal diagnosis: POD 1 s/p primary c/s Patient reports: appetite normal, voiding normally, pain well controlled, ambulating normally Objective - Vital Signs Latest vital signs: Vital Signs Temp Pulse Resp BP BP Pulse Ox 10/31/18 08:35 99.0 F 97 H 20 121/71 97 10/31/18 05:35 99.6 F 95 H 18 120/65 10/31/18 01:55 99.1 F 112 H 18 120/71 10/30/18 19:25 99.4 F 100 H 20 121/64 98 10/30/18 17:15 99.6 F 95 H 18 127/74 100 10/30/18 16:00 93 H 28 H 125/69 10/30/18 15:55 93 H 18 124/79 10/30/18 15:50 96 H 18 125/76 10/30/18 15:45 87 16 124/75 10/30/18 15:40 83 17 118/71 10/30/18 15:35 83 21 127/71 10/30/18 15:30 88 26 H 123/74 10/30/18 15:29 98.8 F 105 H 14 100 10/30/18 15:25 96 H 29 H 114/69 10/30/18 15:20 97.9 F 87 23 123/67 100 10/30/18 15:15 89 24 118/68 10/30/18 15:10 94 H 24 120/66 10/30/18 15:05 98 H 17 119/60 10/30/18 15:00 98 H 24 125/50 10/30/18 14:48 98.8 F 103 H 14 112/45 10/30/18 13:04 102 H 117/71 10/30/18 12:51 94 H 119/63 10/30/18 12:35 91 H 121/84 10/30/18 12:19 99 H 140/63 10/30/18 12:04 93 H 135/69 10/30/18 11:52 101 H 139/60 10/30/18 11:35 110 H 133/73 10/30/18 11:19 110 H 123/69 100 10/30/18 11:05 103 H 120/70 10/30/18 11:04 109 H 100 10/30/18 11:00 98.3 F 16 10/30/18 10:50 104 H 119/77 10/30/18 10:44 105 H 98 10/30/18 10:39 98 H 99 10/30/18 10:36 93 H 127/78 10/30/18 10:34 96 H 98 10/30/18 10:29 100 H 100 10/30/18 10:24 90 99 10/30/18 10:20 95 H 145/78 10/30/18 10:19 99 H 97 Intake and Output 10/30/18 10/31/18 10/31/18 23:59 07:59 15:59 Intake Total 360 Output Total 600 450 Balance -600 -90 Intake: Intake, Free Water 360 Output: Urine 600 450 Indwelling Catheter 600 450 Other: Total, Output Amount 600 450 - Exam Abdomen: Present: normal appearance, soft Extremities: Present: normal Incision: Present: normal, dry, intact - Labs Labs: Abnormal lab results 10/31/18 Range/Units 04:36 Hgb 9.3 L (10.1-14.3) gm/dl Hct 28.5 L (30.3-42.9) %
[2018-10-31] MEDS: FEOSOL PO SCH (10:36)
[2018-10-31] MEDS: IBUPROFEN PO PRN (10:36)
[2018-10-31] MEDS: PRENATAL VITAMIN PO SCH (10:36)
[2018-11-01] MEDS: IBUPROFEN PO PRN ×3 (03:16→20:14)
[2018-11-01] MEDS: NORCO 5/325 PO PRN ×3 (03:18→20:15)
--- NOTE | 2018-11-01 08:24 | Progress Note ---
Assessment and Plan patient doing well, no complaints. Pain well controlled. baby in NICU d/t blood sugar issues per patient. VSSAF, H&H stable, incision dressed - no drainage. declines to have it removed this morning. Encouraged shower this morning and increased activity as tolerated. plan for d/c home tomorrow. - Patient Problems (1) BMI 40.0-44.9, adult Current Visit: Yes Status: Acute (2) delivery delivered Current Visit: Yes Status: Acute Subjective - Subjective Date of service: 11/01/18 Principal diagnosis: POD 2 s/p primary c/s Interval history: EDC Calculations LMP: 10/23/2018 Past History : 1 Term Births: 0 Premature Births: 0 Living Children: 0 Para: 0 Mult. Births: 0 Prev : 0 Prev. attempt? 0 Aborta: 0 Elect. Ab: 0 Spont. 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 of genital herpes: no Partner hx. of genital herpes: no Rash, Viral, or Febrile illness since last LMP? no Varicella/Chicken Pox Status: Unknown TB Risk: no Genetic History Congenital Heart Defect: Mom: no Dad: unknown Gaudencio Disease: Mom: no Dad: unknown Thalassemia Mom: no Dad: unknown Neural Tube Defect Mom: no Dad: unknown Down's Syndrome Mom: no Dad: unknown Marquis-Sachs Mom: no Dad: unknown Sickle Cell Disease/Trait Mom: no Dad: unknown Hemophilia Mom: no Dad: unknown Muscular Dystrophy Mom: no Dad: unknown Cystic Fibrosis Mom: no Dad: unknown [place] Chorea Mom: no Dad: unknown Mental Retardation Mom: no Dad: unknown Fragile X Mom: no Dad: unknown Other Genetic/Chromosomal Disorder Mom: no Dad: unknown Child w/other defect Mom: no Dad: unknown Enviromental Exposures Xray Exposure: no Medication, drug, or alcohol use since LMP: no Chemical/Other Exposure: no Exposure to Cat Liter: no Hx of Parvovirus (Fifth Disease): no Occupational Exposure to Children: none Active Medications (reviewed today): VITAMIN 27-0.8 MG ORAL TABLET ( VIT-FE FUMARATE-FA) Current Allergies (reviewed today): No known allergies Patient reports: appetite normal, voiding normally, pain well controlled, flatus, ambulating normally, no dizzy ambulation, no nauseated : in NICU, bottle feeding Objective - Vital Signs Latest vital signs: Vital Signs Temp Pulse Resp BP BP Pulse Ox 11/01/18 03:18 18 11/01/18 03:16 18 11/01/18 01:06 98.9 F 110 H 20 116/58 10/31/18 22:15 18 10/31/18 16:51 98.5 F 98 H 20 125/74 98 10/31/18 08:35 99.0 F 97 H 20 121/71 97 Intake and Output 10/31/18 11/01/18 11/01/18 23:59 07:59 15:59 Intake Total 240 360 Output Total 800 Balance -560 360 Intake: Oral 240 Intake, Free Water 360 Output: Urine 800 Void 800 Other: Total, Intake Amount 240 Total, Output Amount 800 # Voids Void 2 - Exam Breasts: Present: normal Cardiovascular: Present: Regular rate Lungs: Present: Clear to auscultation, Normal air movement Abdomen: Present: normal appearance, soft Vulva: both: normal Uterus: Present: normal, firm, fundal height at umbilicus Extremities: Present: normal Incision: Present: normal, dry, dressed (rn to remove today after shower)
[2018-11-01] MEDS: PRENATAL VITAMIN PO SCH (10:16)
[2018-11-01] MEDS: FEOSOL PO SCH (10:16)
[2018-11-02] MEDS: IBUPROFEN PO PRN ×2 (01:15→10:32)
[2018-11-02] MEDS: NORCO 5/325 PO PRN (01:15)
--- NOTE | 2018-11-02 08:34 | Discharge Summary ---
Providers - Providers Date of Admission: 10/29/18 21:13 Date of discharge: 11/02/18 (pt aware today is d/c NB remains in NICU) Attending physician: ZHANNA MCKEE 10/30/18 15:46 Consult to Shutdown Planner [CONS] Routine Reason For Exam: Primary care physician: ZHANNA MCKEE Hospitalization Reason for admission: active labor Delivery: Procedure: primary low transverse Episiotomy: none Laceration: none Incision: normal, dry, intact Other procedures: none complications: none Discharge diagnosis: IUP at term delivered Shannon baby: male (NICU BS not stable) Hospital course: uncomplicated section NRFHT Pt w/o complaint this AM VSS FF below umb Lochia scant Incision D&I H&H stable Asymptomatic anemia Doing well s/p c/s P: d/c today with instructions RTO 1 week postop care. Condition at discharge: Good Disposition: DC-01 TO HOME OR SELFCARE - Discharge Diagnoses (1) delivery delivered Status: Acute Comment: RTO 1 week Postop care Plan - Discharge Medications Prescriptions: Ferrous Sulfate [Feosol 325 MG tab] 325 mg PO BID #60 tablet Ibuprofen [Motrin 800 MG tab] 800 mg PO Q6H PRN #30 tablet PRN Reason: Pain Lidocain2.5%/Prilocai2.5% [Emla] 5 gm TP ONCE #1 tube oxyCODONE /ACETAMINOPHEN [Percocet 5/325 mg] 1 - 2 tab PO Q4H PRN #25 tablet PRN Reason: Pain, Moderate - Provider Discharge Summary Activity: routine, no sex for 6 weeks, no heavy lifting 4 weeks, no strenuous exercise Diet: routine Instructions: routine Additional instructions: [] Smoking cessation referral if applicable(refer to patient education folder for contact #) [] Refer to [facility] Booklet Call your doctor immediately for: * Fever > 100.5 * Heavy vaginal bleeding ( >1 pad per hour) * Severe persistent headache * Shortness of breath * Reddened, hot, painful area to leg or breast * Drainage or odor from incision. * Keep incision clean and dry at all times and follow doctor's instructions re garding bathing/showering - Follow up plan Follow up: ZHANNA MCKEE MD [Primary Care Provider] - 7 Days (Congratulations! Please call [phone] to schedule your postoperative care in 1 week. Call to schedule your son's circumcision in 1 week after he is discharged. Bring the EMLA cream with you to his visit. Do NOT use at home. Take medications asprescribed. Call with concerns. )
[2018-11-02] MEDS: FEOSOL PO SCH (10:32)
[2018-11-02] MEDS: PRENATAL VITAMIN PO SCH (10:32)
[2018-11-02 15:23] VITALS: BP 134/68
== END 2018-11-02 15:25 | disposition home or self-care (01) | DRG 765 ==
LOC: TRG 16:22 → LD 21:13 → OB 10-30 17:42
PROVIDERS: ADMIT Obstetrics & Gynecology; ATTEND Obstetrics & Gynecology
PROC: 10D00Z1 Extraction of Products of Conception, Low, Open Approach (ICD-10-PCS; principal; 2018-10-30)
DX: O98.52 Other viral diseases complicating childbirth (principal); Z68.41 Body mass index [BMI] 40.0-44.9, adult; D62 Acute posthemorrhagic anemia; O62.1 Secondary uterine inertia; B00.9 Herpesviral infection, unspecified; O36.63X0 Maternal care for excessive fetal growth, third trimester, not applicable or unspecified; E66.01 Morbid (severe) obesity due to excess calories; O76 Abnormality in fetal heart rate and rhythm complicating labor and delivery; O61.9 Failed induction of labor, unspecified; O77.0 Labor and delivery complicated by meconium in amniotic fluid; Z37.0 Single live birth; Z71.3 Dietary counseling and surveillance; Z3A.40 40 weeks gestation of pregnancy
CPT/HCPCS: 36415; 76815; 76819; 85014; 85018; 85027; 86592; 86850; 86900; 86901; G0378; A6250; J0595; J0690; J1885; J2274; J2405; J2590; J2765; J7120; J7121

== ENCOUNTER 2018-11-27 20:33 | Emergency (ER) | payer MEDICAID ==
--- NOTE | 2018-11-27 21:09 | Emergency Department Report ---
Chief Complaint: Laceration/Recheck/Suture Stated Complaint: INCISION BLEEDING Time Seen by Provider: 11/27/18 21:04 - HPI History of Present Illness: This is a 18 y.o female that presents with opening to right side of lower abdomen wound from . Patient had a 10/30/[address] Fletcher. - ROS Review of Systems: wound dehiscence to right side of transverse lower abdomen - Exam Vital Signs: Vital Signs 11/27/18 21:07 Temperature 98.3 F Pulse Rate 72 Respiratory 16 Rate Blood Pressure 129/55 O2 Sat by Pulse 100 Oximetry MSE screening note: Focused history and physical exam performed. Due to findings the following was ordered: Fast track for further evaluation. ED Disposition for MSE Condition: Stable
--- NOTE | 2018-11-27 23:20 | Emergency Department Report ---
HPI - General Chief Complaint: Laceration/Recheck/Suture Time Seen by Provider: 11/27/18 21:04 - HPI HPI: 18-year-old female who presents to ED status post from 10/30/2018. Today she noticed that she saw a little bit of oozing from the incision. Patient denies any fever, chills, vomiting or pelvic pain. Patient states that she noticed the seizure is oriented may be infected. ED Past Medical Hx - Past Medical History Hx Hypertension: No Hx Congestive Heart Failure: No Hx Diabetes: No Hx Deep Vein Thrombosis: No Hx Renal Disease: No Hx Sickle Cell Disease: No Hx Seizures: No Hx Psychiatric Treatment: Yes Hx Asthma: No Hx COPD: No Hx HIV: No - Social History Smoking Status: Never Smoker Substance Use Type: None - Medications Home Medications: Home Medications Medication Instructions Recorded Confirmed Last Taken Type Ciprofloxacin HCl [Ciprofloxacin 500 mg PO BID #14 tablet 02/07/16 10/31/18 Unknown Rx TAB] Ferrous Sulfate [Feosol 325 MG tab] 325 mg PO BID #60 tablet 10/30/18 Unknown Rx Ibuprofen [Motrin 800 MG tab] 800 mg PO Q6H PRN #30 tablet 10/30/18 Unknown Rx Lidocain2.5%/Prilocai2.5% [Emla] 5 gm TP ONCE #1 tube 10/30/18 Unknown Rx oxyCODONE /ACETAMINOPHEN [Percocet 1 - 2 tab PO Q4H PRN #25 tablet 10/30/18 Unknown Rx 5/325 mg] ED Review of Systems ROS: Stated complaint: INCISION BLEEDING Other details as noted in HPI Comment: All other systems reviewed and negative Physical Exam - Physical Exam Vital Signs: Vital Signs 11/27/18 21:07 Temperature 98.3 F Pulse Rate 72 Respiratory 16 Rate Blood Pressure 129/55 O2 Sat by Pulse 100 Oximetry Physical Exam: GENERAL: Alert and oriented x3, no apparent distress, Normal Gait, atraumatic. ABDOMEN: No organomegaly was noted,Positive bowel sounds, soft, and non- distended. Nontender to palpation on all Quadrants, incision visualize moderately healed. Small opening of the incision on the right side of visualize. Nonerythematous, no drainage, no bleeding. SKIN: Warm and dry, No lesions, No ulceration or induration present. ED Course Vital Signs 11/27/18 21:07 Temperature 98.3 F Pulse Rate 72 Respiratory 16 Rate Blood Pressure 129/55 O2 Sat by Pulse 100 Oximetry ED Medical Decision Making - Medical Decision Making 18-year-old female presents for wound check from her incision was drawn 10/30/2018. He sees she looks well-healed. Mild small opening to the right side. Nontender and no drainage. Discussed the patient to keep wound clean and dry. Discussed that she can put Neosporin through the small wound. Vital signs are normal patient isn't acutely distressed Discussed to follow-up with her SCREEN PRINTING PRESS OPERATOR. Critical care attestation.: If time is entered above; I have spent that time in minutes in the direct care of this critically ill patient, excluding procedure time. ED Disposition Clinical Impression: Visit for wound check Disposition: DC-01 TO HOME OR SELFCARE Is pt being admited?: No Does the pt Need Aspirin: No Condition: Stable Instructions: Acute Wound Care (ED) Referrals: SLIME GABRIEL MD [Primary Care Provider] - 3-5 Days Forms: Work/School Release Form(ED) Time of Disposition: 23:21
== END 2018-11-27 23:26 | disposition home or self-care (01) ==
LOC: ED 20:33

== ENCOUNTER 2018-11-30 17:58 | Emergency (ER) | payer MEDICAID ==
--- NOTE | 2018-11-30 18:36 | Emergency Department Report ---
Chief Complaint: Laceration/Recheck/Suture Stated Complaint: C SECTION ISSUES - HPI History of Present Illness: Pt is a 18 yo female who presents to the ED with c/o wound check. Pt had a c- section delivery on 10/29/18. Pt was evaluated in the ED on 11/27/18 for the exact same issue with the same size defect. there is a very small 1 cm area of defect, rest of incision is completely intact. Pt has no purulent drainage, no fever, no N/V, no erythema, no heavy bleeding. Pt has not followed up with her MIDLEVEL PROVIDER even though the last time she was seen in the ED she was told to follow up. Pt needs to see her MIDLEVEL PROVIDER on 12/02. Discussed this with pt. Advised to return to the ED for any fever, purulent drainage, or increased size of the defect. - Exam Vital Signs: Vital Signs 11/30/18 18:27 Temperature 98.6 F Pulse Rate 99 H Respiratory 20 Rate Blood Pressure 127/81 O2 Sat by Pulse 99 Oximetry MSE screening note: Focused history and physical exam performed. discussed case with Dr. Vasquez will d/c home and have pt follow up with MIDLEVEL PROVIDER ED Disposition for MSE Clinical Impression: Visit for wound check, delivery delivered Disposition: TO HOME OR SELFCARE Condition: Stable Instructions: Acute Wound Care (ED) Additional Instructions: Please follow up with your PROJECT ENGINEERING DIRECTOR on Sunday12/02/18 Return to the ED if any new or worsening symptoms return if experiencing pus drainage or fever or if wound has gotten larger Referrals: [facility] [Provider Group] - [place] Print Language: SAUDI ARABIAN
== END 2018-11-30 19:00 | disposition home or self-care (01) ==
LOC: ED 17:58
DX: Z48.01 Encounter for change or removal of surgical wound dressing (principal)